=== PATIENT | female | born 1940 | race African-American/Black ===

== ENCOUNTER 2018-09-09 05:40 | Emergency (ER) | payer OTHER ==
[2018-09-09] MEDS ORDERED: SODIUM CHLORIDE 1,000 ML IV SCH (05:45)
[2018-09-09 06:08] VITALS: BMI 26.4
--- NOTE | 2018-09-09 07:52 | PDOC ---
History of Present Illness - General Chief Complaint: Pain Stated Complaint: GI DISTRESS Time Seen by Provider: 09/09/18 05:41 History Source: Patient Exam Limitations: No Limitations - History of Present Illness Initial Comments: 09/09/18 07:46 Patient is a 78F with history of HTN and GI bleed 2/2 diverticulosis here today complaining of lab variance. Patient states that she was admitted from 09/04/18 to 09/06/18. She was admitted for syncope and left against medical advice. She states that she syncopized while getting out of bed on 09/04, causing her to go to the hospital. Per records she provided: head CT was normal, EKG showed sinus bradycardia, carotid us was normal, orthostatic hypotension was found, patient had elevated d-dimer. Patient then refused CTA. She is coming back today because she states that she got scared. Denies current chest pain, shortness of breath, fevers, chills, nausea and vomiting. Endorses cramping in R leg. Denies pain in abdomen, endorses feeling bloated. Denies dysuria. Past History - Past Medical History Allergies/Adverse Reactions: Allergies Allergy/AdvReac Type Severity Reaction Status Date / Time Penicillins Allergy Verified 09/09/18 09:31 Sulfa (Sulfonamide Allergy Verified 09/09/18 09:31 Antibiotics) Home Medications: Ambulatory Orders Amlodipine Besylate 5 mg PO DAILY 09/09/18 Atorvastatin Ca [Lipitor] 10 mg PO HS 09/09/18 Docusate Sodium [Colace -] 200 mg PO HS 09/09/18 Ferrous Sulfate [Feosol] 325 mg PO DAILY 09/09/18 COPD: Yes - Immunization History Immunization Up to Date: Yes - Suicide/Smoking/Psychosocial Hx Smoking History: Never smoked Have you smoked in the past 12 months: No Information on smoking cessation initiated: No Hx Alcohol Use: No Drug/Substance Use Hx: No Review of Systems - Review of Systems Comments:: 09/09/18 07:54 GENERAL/CONSTITUTIONAL: No fever or chills. No weakness. HEAD, EYES, EARS, NOSE AND THROAT: No change in vision. No sore throat. CARDIOVASCULAR: No chest pain or shortness of breath RESPIRATORY: No cough, wheezing, or hemoptysis. GASTROINTESTINAL: No nausea, vomiting, diarrhea or constipation. GENITOURINARY: No dysuria, frequency, or change in urination. MUSCULOSKELETAL: +R leg pain. No neck or back pain. SKIN: No rash NEUROLOGIC: No headache, vertigo, +syncope, or change in strength/sensation. ENDOCRINE: No increased thirst. No abnormal weight change HEMATOLOGIC/LYMPHATIC: No anemia, easy bleeding, or history of blood clots. ALLERGIC/IMMUNOLOGIC: No hives or skin allergy. *Physical Exam - Vital Signs Last Vital Signs Temp Pulse Resp BP Pulse Ox 97.8 F 64 20 166/85 97 09/09/18 07:17 18 07:17 09/09/18 07:17 09/09/18 07:17 09/09/18 07:17 - Physical Exam Comments: 09/09/18 07:55 GENERAL: Awake, alert, and fully oriented, in no acute distress HEAD: No signs of trauma, normocephalic, atraumatic EYES: PERRLA, EOMI, sclera anicteric, conjunctiva clear ENT: Auricles normal inspection, hearing grossly normal, nares patent, oropharynx clear without exudates. Moist mucosa NECK: Normal ROM, supple, no lymphadenopathy, JVD, or masses LUNGS: No distress, speaks full sentences, clear to auscultation bilaterally HEART: Regular rate and rhythm, normal S1 and S2, no murmurs, rubs or gallops, peripheral pulses normal and equal bilaterally. ABDOMEN: Soft, nontender, normoactive bowel sounds. No guarding, no rebound. No masses EXTREMITIES: Normal inspection, Normal range of motion, no edema. No clubbing or cyanosis. R LEG: Nontender in posterior knee and calf, no pain with extension or flexion. NEUROLOGICAL: Cranial nerves II through XII grossly intact. Normal speech, no focal sensorimotor deficits SKIN: Warm, Dry, normal turgor, no rashes or lesions noted. Moderate Sedation - Procedure Monitoring Vital Signs: Procedure Monitoring Vital Signs Temperature 97.8 F 09/09/18 07:17 Pulse Rate 64 09/09/18 07:17 Respiratory Rate 20 09/09/18 07:17 Blood Pressure 166/85 09/09/18 07:17 O2 Sat by Pulse Oximetry (%) 97 09/09/18 07:17 ED Treatment Course - LABORATORY CBC & Chemistry Diagram: 09/09/18 08:10 09/09/18 08:10 - RADIOLOGY Radiology Studies Ordered: Category Date Time Status CHEST CTA [CT] Stat CT Scan 09/09/18 07:45 Ordered Medical Decision Making - Medical Decision Making 09/09/18 07:56 Patient is 78F with history of diverticulosis and htn here today after leaving AMA from a syncope workup at [facility]. Records show a comprehensive workup supporting orthostatic hypotension as cause of syncope, no symptoms since. D- dimer elevated as per her records, but never had US or CTA done. Will evaluate further with basic cardiac labs, ekg, cta chest, and dvt us. 09/09/18 12:43 Laboratory Tests 09/09/18 09/09/18 09/09/18 08:10 08:10 08:10 WBC 3.5 L Hgb 10.1 L Plt Count 198 INR 1.16 H BUN 6 L Creatinine 0.6 Troponin I 0.02 Urine Urobilinogen Ur Leukocyte Esterase Urine WBC (Auto) 09/09/18 09:36 WBC Hgb Plt Count INR BUN Creatinine Troponin I Urine Urobilinogen Negative Ur Leukocyte Esterase Trace Urine WBC (Auto) 2 CBC reassuring. CMP normal. Trop detectable but less than threshold. CTA normal. DVT US normal. Believe cause of patient's syncope likely dehyrdation causing orthostatic hypotension. Patient's PCP Nina Sandoval at [place] notified via message at her office. Given return precautions. Discharged home with instructions to follow up with primary care. *DC/Admit/Observation/Transfer Diagnosis at time of Disposition: Syncope - Discharge Dispostion Disposition: HOME Condition at time of disposition: Good Decision to Admit order: No - Referrals - Patient Instructions Printed Discharge Instructions: DI for Syncope in Adults (Fainting) Additional Instructions: Please call your primary care doctor today to make an appointment. Please return to the ED immediately if you have any new, worsening or concerning symptoms, especially fever, chest pain and shortness of breath. - Post Discharge Activity
[2018-09-09 08:37] LABS: EOS % 0.5 % (0-4.5); HEMATOCRIT 30.8 % (32.4-45.2); HEMOGLOBIN 10.1 GM/dL (10.7-15.3); LYMPH % 27.5 % (8-40); MCH 24.1 pg (25.7-33.7); MEAN CELL VOLUME 73.1 fl (80-96); MEAN PLT VOLUME 10.3 fl (7.5-11.1); MONO % 7.2 % (3.8-10.2); NEUT % 63.8 % (42.8-82.8); PLATELET COUNT 198 K/MM3 (134-434); RBC 4.21 M/mm3 (3.60-5.2); RDW 22.6 % (11.6-15.6); WHITE BLOOD COUNT 3.5 K/mm3 (4.0-10.0)
--- NOTE | 2018-09-09 08:58 | PDOC ---
Attending Attestation - Resident Resident Name: Hill Mccall - ED Attending Attestation I have performed the following: I have examined & evaluated the patient, The case was reviewed & discussed with the resident, I agree w/resident's findings & plan, Exceptions are as noted - HPI HPI: 09/09/18 08:55 70-year-old female history of hypertension previous GI bleed here today after a recent admission to [facility] from 1213 11/04/2014. Patient states she had a workup for syncope was admitted was evaluated with a echo of the heart, carotid Dopplers, in addition to lab work instantly patient had a positive d- dimer in the 3000 range at that point she left the hospital AMA because she was tired of being patient states today she became scared was told she could if the d-dimer was abnormal so she came to the ED for evaluation. Denies any chest pain no shortness of breath has had intermittent leg cramps and charley horses. No history of previous DVT or PE no recent travel patient states at the initial syncopal episode she was sitting on the edge of her bed and suddenly became lightheaded next thing she knew she was on the floor denies any chest pain no recent lightheadedness no shortness of breath no leg swelling no other complaints - Physicial Exam PE: 09/09/18 08:56 Awake alert no acute distress lungs are clear bilaterally heart is regular without any murmurs rubs or gallops abdomen is soft nontender no pulsatile masses extremities are warm and well perfused no appreciated edema no calf tenderness patient has symmetric pulses neurologically she is alert oriented 3 moving all 4 extremities face is symmetric. - Medical Decision Making 09/09/18 08:57 Differential diagnosis includes DVT PE other nonspecific inflammatory marker. We 'll obtain basic lab work including CBC CMP troponin EKG in addition we will obtain a CTA to rule out PE as the patient had a known positive d-dimer. In addition will get Dopplers of her legs lab lab work and results reviewed from the previous hospital if negative will likely discharge home follow up with cardiology
[2018-09-09 09:00] LABS: ALK PHOS 68 U/L (45-117); ANION GAP 7 MMOL/L (8-16); BILIRUBIN,TOTAL 0.8 mg/dL (0.2-1); BLOOD UREA NITROGEN 6 mg/dL (7-18); CALCIUM 8.6 mg/dL (8.5-10.1); CHLORIDE 106 mmol/L (98-107); CHOLESTEROL 181 mg/dL (50-200); CO2 29 mmol/L (21-32); CREATININE 0.6 mg/dL (0.55-1.3); GLUCOSE,RANDOM 85 mg/dL (74-106); POTASSIUM 3.8 mmol/L (3.5-5.1); SGOT/AST 22 U/L (15-37); SGPT/ALT 15 U/L (13-61); SODIUM 142 mmol/L (136-145); TOT PROT 7.7 g/dl (6.4-8.2); TRIGLYCERIDES 54 mg/dL (0-150)
[2018-09-09 09:29] LABS: INR 1.16 (0.83-1.09); PROTHROMBIN TIME (PATIENT) 13.7 SEC (9.7-13.0)
[2018-09-09 09:44] LABS: URINE APPEARANCE CLEAR; URINE BILIRUBIN NEGATIVE (<2.0 mg/dL); URINE COLOR COLORLESS; URINE GLUCOSE (UA) NEGATIVE (NEGATIVE); URINE KETONE NEGATIVE (NEGATIVE); URINE LEUK ESTERASE TRACE (NEGATIVE); URINE NITRITE NEGATIVE (NEGATIVE); URINE PROTEIN NEGATIVE (NEGATIVE); URINE UROBILINOGEN NEGATIVE mg/dL (0.2-1.0)
[2018-09-09 09:46] LABS: EPI CELLS RARE /HPF (FEW); URINE MUCUS RARE
[2018-09-09 09:54] LABS: HDL CHOLESTEROL 77 mg/dL (40-60)
[2018-09-09 11:08] LABS: ANISOCYTOSIS 1+; MACROCYTOSIS 0; PLATELET ESTIMATE NORMAL
[2018-09-09 13:02] VITALS: BP 125/76; PULSE 67; TEMP 98.3
--- NOTE | 2018-09-09 16:25 | EKG ---
Test Reason : Blood Pressure : / mmHG Vent. Rate : 052 BPM Atrial Rate : 052 BPM P-R Int : 176 ms QRS Dur : 080 ms QT Int : 448 ms P-R-T Axes : -17 -01 027 degrees QTc Int : 416 ms SINUS BRADYCARDIA NONSPECIFIC T WAVE ABNORMALITY ABNORMAL ECG Confirmed by MD FLORES, OPHELIA ([id number]) on 09/09/2018 4:24:40 PM Referred By: Confirmed By:OPHELIA TANNER MD
== END 2018-09-09 12:58 | disposition home or self-care (01) ==
LOC: JER 05:40
DX: R55 Syncope and collapse (principal); I10 Essential (primary) hypertension
CPT/HCPCS: 36415; 71275-TC; 80053; 81003; 81015; 82465; 82550; 83718; 83721; 84478; 84484; 85025; 85610; 93005; 93010; 93971-TC; 99284-25

== ENCOUNTER 2019-05-26 16:38 | Emergency (ER) | payer OTHER ==
[2019-05-26 17:45] VITALS: BMI 26.9
--- NOTE | 2019-05-26 17:56 | PDOC ---
History of Present Illness - General Chief Complaint: Injury Stated Complaint: FALL Time Seen by Provider: 05/26/19 17:54 History Source: Patient Exam Limitations: No Limitations - History of Present Illness Initial Comments: 05/26/19 17:55 Corrine Padilla is a 79F with PMH HTN, HLD, and diverticulosis with history of GIB requiring transfusions presenting with dizziness and fall. Patient was in a store when she began to feel lightheaded, room-spinning, and then she tripped her shoes on the carpet and fell to her right side, hitting her ribs against a metal display but not hitting her head. States that she did not lose consciousness or have post-ictal state. Says she had some racing heart during and after fall. No fevers, chills, abd pain, headache, SOB, LE weakness. Reports no arrhythmia history but that she takes amlodipine that might drop her BP from time to time. Got echo last week which she says no interval changes from year prior, gets them at the request of her PCP after other falls. Has history of "silent TIA," not on AC 2/2 history of major bleeding. Past History - Past Medical History Allergies/Adverse Reactions: Allergies Allergy/AdvReac Type Severity Reaction Status Date / Time Penicillins Allergy Verified 09/09/18 09:31 Sulfa (Sulfonamide Allergy Verified 09/09/18 09:31 Antibiotics) Home Medications: Ambulatory Orders Amlodipine Besylate 5 mg PO DAILY 09/09/18 Atorvastatin Ca [Lipitor] 10 mg PO HS 09/09/18 Docusate Sodium [Colace -] 200 mg PO HS 09/09/18 Ferrous Sulfate [Feosol] 325 mg PO DAILY 09/09/18 Pantoprazole Sodium [Protonix -] 20 mg PO DAILY 05/26/19 CVA: Yes (TIA) COPD: Yes HTN: Yes - Immunization History Immunization Up to Date: Yes - Suicide/Smoking/Psychosocial Hx Smoking History: Never smoked Have you smoked in the past 12 months: No Information on smoking cessation initiated: No Hx Alcohol Use: No Drug/Substance Use Hx: No Review of Systems - Review of Systems Constitutional: No: Symptoms Reported HEENTM: No: Blurred Vision, Recent change in vision, Double Vision, Tinnitus Respiratory: Yes: Cough (post-nasal drip). No: Shortness of Breath, SOB with Exertion, SOB at Rest, Wheezing Cardiac (ROS): No: Chest Pain, Irregular Heart Rate, Palpitations ABD/GI: No: Constipated, Diarrhea, Nausea, Vomiting : No: Burning, Dysuria, Discharge, Frequency, Flank Pain, Hematuria, Incontinence Integumentary: No: Symptoms Reported Neurological: No: Headache, Numbness, Paresthesia, Seizure, Tingling, Weakness, Unsteady Gait, Ataxia Endocrine: No: Symptoms Reported Hematologic/Lymphatic: No: Symptoms Reported All Other Systems: Reviewed and Negative *Physical Exam - Vital Signs Last Vital Signs Temp Pulse Resp BP Pulse Ox 97.9 F 59 L 18 162/83 96 05/26/19 17:41 05/26/19 17:41 05/26/19 17:41 05/26/19 17:41 05/26/19 17:41 - Physical Exam General Appearance: Yes: Nourished, Appropriately Dressed, Thin. No: Apparent Distress HEENT: positive: EOMI, GIOVANI, Normal Voice, Symmetrical, Pharynx Normal, Hearing Grossly Normal. negative: Scleral Icterus (R), Scleral Icterus (L), Pharyngeal Erythema, Tonsillar Exudate, Tonsillar Erythema, Sinus Tenderness Neck: positive: Normal Thyroid, Supple. negative: Tender, Lymphadenopathy (R), Lymphadenopathy (L), Tender lateral, Tender midline (no bony tenderness to neck) Respiratory/Chest: positive: Chest Tender (R lower rib cage, L side non-tender) , Lungs Clear, Normal Breath Sounds. negative: Respiratory Distress, Accessory Muscle Use, Crackles, Rales, Rhonchi Cardiovascular: positive: Regular Rhythm, Regular Rate. negative: Edema, Murmur Gastrointestinal/Abdominal: positive: Normal Bowel Sounds Musculoskeletal: positive: Normal Inspection. negative: CVA Tenderness, Vertebral Tenderness Extremity: positive: Normal Capillary Refill, Normal Inspection, Normal Range of Motion, Other (all limbs 5/5 motor, full ROM, moves spontaneously). negative : Tender Integumentary: positive: Normal Color, Dry, Warm Neurologic: positive: pie cutter II-XII NML intact, Fully Oriented, Alert, Normal Mood/ Affect, Normal Response, Motor Strength 5/5. negative: Facial Droop, Numbness, Sensory Deficit, Confused ED Treatment Course - LABORATORY CBC & Chemistry Diagram: 05/26/19 16:46 05/26/19 16:46 Medical Decision Making - Medical Decision Making 05/26/19 17:55 Corrine Padilla is a 79F with PMH HTN, HLD, and diverticulosis with history of GIB requiring transfusions presenting with dizziness and fall. Patient history and presentation concerning for dizziness/vertigo vs. cardiac syncope, especially given reported history of silent TIA, heart racing when falling. Did not hit head or LOC, but concerning presentation for TIA. No facial droop notable and absolutely no neurological deficits to cranial nerves or motor to extremities. Will evaluate with CT head non/con. XR rib series R side for possible rib fx. Further evaluation for cardiac syncope: CMP CBC CP ECG UA Signed out to Dr. Mccoy. *DC/Admit/Observation/Transfer Diagnosis at time of Disposition: Dizziness, Lightheadedness Fall Qualifiers: Encounter type: initial encounter Qualified Code(s): W19.XXXA - Unspecified fall, initial encounter - Referrals - Patient Instructions - Post Discharge Activity
--- NOTE | 2019-05-26 18:32 | PDOC ---
Attending Attestation - Resident Resident Name: Boston Gomez - ED Attending Attestation I have performed the following: I have examined & evaluated the patient, The case was reviewed & discussed with the resident, I agree w/resident's findings & plan, Exceptions are as noted - HPI HPI: 05/26/19 18:22 this 79 female was at [employer] shopping and became dizzy,felt the room spin and tried to keep standing but then got her shoe caught and fell and hit her rt anterior ribcage on a display in the store. Denies LOC and denies head trauma - Physicial Exam PE: 05/26/19 18:25 alert,conversant 79 yo female has c/o rt ribcage soreness head no scalp lacerations,no abrasions,no hematomas eyes xiang eomi neck no midline cervical vertebral tenderness lungs cta b/l cvs [id number] abdomen : flat,nontender tenderness to palpation of rt anterior ribcage beneath rt breast no flank pain skin : no abrasions,no lacerations extremities :no hip pain,able to raise both legs off the gurney neuro alert,conversant,No slurred speech,no facial droop,motor strength 5/5, b/ l 05/26/19 18:33 - Medical Decision Making 05/26/19 18:34 diff diag includes: TIA,vertigo,ACS,vasovagel vs near synope,arrhythmia plan ekg,trop,ct scan head,cbc,comp,UA 05/26/19 23:15 lab results unremarkable first troponin is negative ct scan head no acute intracranial pathology pt hasno focal neuro deficits no cp,no sob,no cough,no abd pain pt wants to leave w/o waiting for rd troponin and is signing out AMA
[2019-05-26 19:14] LABS: ALBUMIN 4.2 g/dl (3.4-5.0); BILIRUBIN,TOTAL 0.4 mg/dL (0.2-1); BLOOD UREA NITROGEN 6.9 mg/dL (7-18); CALCIUM 9.5 mg/dL (8.5-10.1); CREATININE 0.6 mg/dL (0.55-1.3); TOT PROT 7.5 g/dl (6.4-8.2)
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
[2019-05-26 19:28] LABS: EPI CELLS 4.1 /HPF (0-5/HPF); HYALINE CASTS 1 /lpf (0-8); PH,URINE 8.5 (5.0-8.0); URINE APPEARANCE CLEAR; URINE BACTERIA 7.6 /hpf (NEGATIVE); URINE BILIRUBIN NEGATIVE (NEGATIVE); URINE COLOR YELLOW; URINE GLUCOSE (UA) NEGATIVE (NEGATIVE); URINE KETONE NEGATIVE (NEGATIVE); URINE LEUK ESTERASE 2+ (NEGATIVE); URINE NITRITE NEGATIVE (NEGATIVE); URINE PROTEIN NEGATIVE (NEGATIVE); URINE RBC 1 /hpf (0-4); URINE UROBILINOGEN 0.2 mg/dL (0.2-1.0); URINE WBC 10 /hpf (0-5)
[2019-05-26 20:08] LABS: BASO % 1.2 % (0-2.0); EOS % 1.2 % (0-4.5); HEMATOCRIT 39.8 % (32.4-45.2); HEMOGLOBIN 12.8 GM/dL (10.7-15.3); LYMPH % 20.8 % (8-40); MCHC 32.1 g/dl (32.0-36.0); MEAN CELL VOLUME 84.3 fl (80-96); MEAN PLT VOLUME 10.2 fl (7.5-11.1); MONO % 5.7 % (3.8-10.2); NEUT % 71.1 % (42.8-82.8); PLATELET COUNT 121 K/MM3 (134-434); RBC 4.72 M/mm3 (3.60-5.2); RDW 27.6 % (11.6-15.6); WHITE BLOOD COUNT 5.4 K/mm3 (4.0-10.0)
[2019-05-26 20:37] LABS: ANISOCYTOSIS 3+; MACROCYTOSIS 1+; OVALOCYTE 1+; PLATELET ESTIMATE DECREASED; TARGET CELLS 1+
[2019-05-26 22:54] VITALS: BP 148/78; PULSE 72; TEMP 97.8
--- NOTE | 2019-05-27 09:03 | EKG ---
Test Reason : Blood Pressure : / mmHG Vent. Rate : 052 BPM Atrial Rate : 052 BPM P-R Int : 184 ms QRS Dur : 082 ms QT Int : 460 ms P-R-T Axes : 073 031 045 degrees QTc Int : 427 ms SINUS BRADYCARDIA NONSPECIFIC T WAVE ABNORMALITY ABNORMAL ECG WHEN COMPARED WITH ECG OF 09-SEP-2018 09:03, NO SIGNIFICANT CHANGE WAS FOUND Confirmed by LAURA GILBERT MD ([id number]) on 05/27/2019 9:03:09 AM Referred By: Confirmed By:LAURA GILBERT MD
== END 2019-05-26 23:45 | disposition left against medical advice (07) ==
LOC: JER 16:38
DX: R42 Dizziness and giddiness (principal); W18.39XA Other fall on same level, initial encounter; Y93.89 Activity, other specified; Y92.89 Other specified places as the place of occurrence of the external cause; I10 Essential (primary) hypertension; E78.5 Hyperlipidemia, unspecified; K92.2 Gastrointestinal hemorrhage, unspecified; J44.9 Chronic obstructive pulmonary disease, unspecified
CPT/HCPCS: 36415; 70450-TC; 71046-TC-FY; 71101-TC-RT-FY; 80053; 81003; 82550; 82553; 84484; 85025; 93005; 93010; 99283-25

== ENCOUNTER 2020-04-25 10:46 | Inpatient (IN) | payer OTHER ==
[2020-04-25 11:00] VITALS: BMI 21.8
[2020-04-25] MEDS ORDERED: SODIUM CHLORIDE 1,000 ML IV STA (11:05)
--- NOTE | 2020-04-25 11:33 | PDOC ---
History of Present Illness - General Chief Complaint: Rectal Bleed Stated Complaint: HEMATOCHEZIA Time Seen by Provider: 04/25/20 11:03 History Source: Patient Exam Limitations: No Limitations - History of Present Illness Initial Comments: Corrine is 80 yo F w a hx of HTN, HLD, Diverticulosis, partial hyserectomy, iron deficiency anemia requiring frequent transfusions, and a left inguinal hernia who presents to the [facility] er with rectal bleeding and BRBPR. First noticed the bleeding this morning after a bowel movement. Noticed dark stools in the toilet and when she wiped she noticed the blood. She states the toilet was full of blood. She had a similar episode to this in December where she was worked up [place]. Endorses lightheadedness. Also endorses having a hemorrhoid. Recently taken off pantoprazole. - Last colonoscopy may 2019 - Patient denies taking blood thinners Denies chest pain, sob, dysuria, frequency, hematuria, urgency, nausea, vomiting, abdominal pain. Denies fevers, chills, infections, recent travel. PCP: Shonda Diallo José GI: Dr. Rico Rosado - [facility] General Surgeon: None PSH: Partial hysterectomy Social Hx: Denies smoking, drinking, or other substance abuse Allergies: Penicillins, Sulfa Past History - Medical History Allergies/Adverse Reactions: Allergies Allergy/AdvReac Type Severity Reaction Status Date / Time Penicillins Allergy Verified 04/25/20 10:54 Sulfa (Sulfonamide Allergy Verified 04/25/20 10:54 Antibiotics) Home Medications: Ambulatory Orders Amlodipine Besylate 5 mg PO DAILY 09/09/18 Atorvastatin Ca [Lipitor] 10 mg PO HS 09/09/18 Docusate Sodium [Colace -] 200 mg PO HS 09/09/18 Ferrous Sulfate [Feosol] 325 mg PO DAILY 09/09/18 Pantoprazole Sodium [Protonix -] 20 mg PO DAILY 05/26/19 CVA: Yes (TIA) COPD: Yes HTN: Yes - Immunization History Immunization Up to Date: Yes - Psycho-Social/Smoking History Smoking History: Never smoked Have you smoked in the past 12 months: No - Substance Abuse Hx (Audit-C & DAST Scrn) How often the patient has a drink containing alcohol: Never Score: In Men: 4 or > Positive; In Women: 3 or > Positive: 0 Screen Result (Pos requires Nsg. Audit-10AR): Negative Review of Systems - Review of Systems Able to Perform ROS?: Yes Comments:: CONSTITUTIONAL: Present: Fatigue Absent: fever, no chills EYES: Absent: visual changes ENT: Absent: ear pain, no sore throat CARDIOVASCULAR: Absent: chest pain, no palpitations RESPIRATORY: Absent: cough, no SOB GI: Absent: Abdominal pain, no nausea, no vomiting, no constipation, no diarrhea GENITOURINARY: Absent: dysuria, no frequency, no hematuria MUSKULOSKELETAL: Absent: back pain, no arthralgia, no myalgia SKIN: Absent: rash NEURO: Absent: headache *Physical Exam - Vital Signs Last Vital Signs Temp Pulse Resp BP Pulse Ox 98.5 F 62 18 133/78 99 04/25/20 10:55 04/25/20 10:55 04/25/20 10:55 04/25/20 10:55 04/25/20 10:55 - Physical Exam GENERAL: Well-appearing, well-nourished. No apparent distress. HEENT: Normocephalic, atraumatic. PERRL, EOM intact. CARDIOVASCULAR: Normal S1, S2. Regular rate and rhythm. PULMONARY: No evidence of respiratory distress. Lungs clear to auscultation bilaterally. No wheezing, rales or rhonchi. ABDOMINAL: Soft. Non-tender. Non-distended. No rebound or guarding. No organomegaly. Normoactive bowel sounds. RECTAL EXAM: There is BRBPR on digital exam. There is an external hemorrhoid which is not tender and not thrombosed. EXTREMITIES: Normal ROM in all four extremities. No gross deformities. SKIN: Warm, dry. No rash NEUROLOGICAL: No focal neurological deficits. ED Treatment Course - LABORATORY CBC & Chemistry Diagram: 04/25/20 11:13 04/25/20 11:13 - RADIOLOGY Radiology Studies Ordered: Category Date Time Status ABDOMEN & PELVIS CT WITH CONTR [CT] Stat CT Scan 04/25/20 11:07 Ordered CHEST X-RAY PORTABLE* [RAD] Stat Radiology 04/25/20 11:05 Ordered Medical Decision Making - Medical Decision Making Corrine is 80 yo F w a hx of HTN, HLD, Diverticulosis, partial hyserectomy, iron deficiency anemia requiring frequent transfusions, and a left inguinal hernia who presents to the [facility] er with rectal bleeding and BRBPR. First noticed the bleeding this morning after a bowel movement. Noticed dark stools in the toilet and when she wiped she noticed the blood. She states the toilet was full of blood. She had a similar episode to this in December where she was worked up [place]. Endorses lightheadedness. Also endorses having a hemorrhoid. Recently taken off pantoprazole. - Last colonoscopy may 2019 - Patient denies taking blood thinners Vital Signs Temp Pulse Resp BP Pulse Ox 98.5 F 62 18 133/78 99 04/25/20 10:55 04/25/20 10:55 04/25/20 10:55 04/25/20 10:55 04/25/20 10:55 DDx IBNLT: GI bleed - likely lower, less likely upper, electrolyte/metabolic disturbance, anemia requiring transfusions, likely diverticular bleed, less likely AVM vs malignancy vs hemorrhoidal bleeding. Plan: Labs, Transfuse, GI, Admit for H&H trending, serial abdominal exams Labs: Hb 9 - Will transfuse 1 unit as patient is actively bleeding BRBPR in the ER. GI Consult: Spoke with Dr. Adames, aware of patient, will follow. Agrees with Tele admission. GI Dr. Rosado consult: States patient is a frequent flyer, planned for capsule endoscopy in the next few weeks at [facility]. States no need for transfer at present time as patient likely doesn't need intervention. Recommends monitoring H&H and [facility] GI fu if H&H stays stable Dispo: Telemetry Discharge - Discharge Information Problems reviewed: Yes Clinical Impression/Diagnosis: BRBPR (bright red blood per rectum), Diverticulosis, Anemia requiring transfusions GI bleed Qualifiers: GI bleed type/associated pathology: unspecified gastrointestinal hemorrhage type Qualified Code(s): K92.2 - Gastrointestinal hemorrhage, unspecified Condition: Stable - Admission Yes - Follow up/Referral Referrals: ON STAFF,NOT [Primary Care Provider] - - Patient Discharge Instructions - Post Discharge Activity
[2020-04-25 11:40] LABS: EOS % 0.4 % (0-4.5); HEMATOCRIT 29.6 % (32.4-45.2); LYMPH % 16.1 % (8-40); MCH 22.7 pg (25.7-33.7); MCHC 30.4 g/dl (32.0-36.0); MEAN CELL VOLUME 74.6 fl (80-96); NEUT % 72.5 % (42.8-82.8); PLATELET COUNT 226 K/MM3 (134-434); RBC 3.96 M/mm3 (3.60-5.2); RDW 25.8 % (11.6-15.6); WHITE BLOOD COUNT 5.8 K/mm3 (4.0-10.0)
[2020-04-25 11:47] LABS: INR 1.14 (0.83-1.09); PROTHROMBIN TIME (PATIENT) 13.5 SEC (9.7-13.0)
[2020-04-25 12:11] LABS: ALK PHOS 74 U/L (45-117); ANION GAP 8 MMOL/L (8-16); BILIRUBIN,TOTAL 0.7 mg/dL (0.2-1); CALCIUM 8.8 mg/dL (8.5-10.1); CHLORIDE 109 mmol/L (98-107); CO2 24 mmol/L (21-32); CREATININE 0.6 mg/dL (0.55-1.3); GLUCOSE,RANDOM 84 mg/dL (74-106); POTASSIUM 4.3 mmol/L (3.5-5.1); SGOT/AST 33 U/L (15-37); SGPT/ALT 14 U/L (13-61); SODIUM 141 mmol/L (136-145); TOT PROT 7.8 g/dl (6.4-8.2)
[2020-04-25 12:42] LABS: LDH 261 U/L (84-246)
[2020-04-25 12:47] LABS: ANISOCYTOSIS 3+; MACROCYTOSIS 0; PLATELET ESTIMATE NORMAL
--- NOTE | 2020-04-25 13:14 | CON.GI ---
Consult Consult Specialty:: GI Referred by:: Hospitalist Service Reason for Consultation:: Rectal bleeding - History of Present Illness Chief Complaint: Rectal bleeding History of Present Illness: 80F admitted through [facility] for evaluation of panless rectal bleeding. Described passage of red blood and clots. had formed dark BM's yesterday. Describes similar episode in the past, the last being december or january, alludes to being eval uated at [facility]. Did not have endoscopic evaluations at that time. Follows with mold dresser Dr. Rico Rosado of [facility] [phone]. He performed Ms. Padilla's most recent EGD/Colonoscopy june or July of 2019. She does not recall the findings. She states that she has seen Dr. Rosado last week and she is apparently scheduled to have a capsule endoscopy next week. No unintentioanl weight loss. Is maintained on iron therapy. Called Dr. Rosado's office. Was told he will call me back and that it may be a couple of hours. No family history of colorectal cancer or other GI malignancy. Denies NSAID use. - History Source History Provided By: Patient, Medical Record - Past Medical History Cardio/Vascular: Yes: HTN, Hyperlipdemia - Past Surgical History Additional Surgical History: Denies - Alcohol/Substance Use Hx Alcohol Use: No History of Substance Use: reports: None - Smoking History Smoking history: Never smoked Have you smoked in the past 12 months: No - Social History Usual Living Arrangement: Alone () ADL: Independent Place of : [facility] History of Recent Travel: No Home Medications - Allergies Allergies/Adverse Reactions: Allergies Allergy/AdvReac Type Severity Reaction Status Date / Time Penicillins Allergy Verified 04/25/20 10:54 Sulfa (Sulfonamide Allergy Verified 04/25/20 10:54 Antibiotics) - Home Medications Home Medications: Ambulatory Orders Amlodipine Besylate 5 mg PO DAILY 09/09/18 Atorvastatin Ca [Lipitor] 10 mg PO HS 09/09/18 Docusate Sodium [Colace -] 200 mg PO HS 09/09/18 Ferrous Sulfate [Feosol] 325 mg PO DAILY 09/09/18 Pantoprazole Sodium [Protonix -] 20 mg PO DAILY 05/26/19 Family Medical History Family Hx Respiratory Disorders: Sister (: COPD) Family Hx Gastrointestinal Disorder: Mother (DiedL Liver problems) Other Family History: Father: , unclear causes. 1 sister: , multiple medical problems. 4 sond, 2 daughters, healthy. No family history of colorectal cancer or other GI malignancy Review of Systems - Review of Systems Constitutional: denies: Chills, Unintentional Wgt. Loss Cardiovascular: denies: Chest Pain, Palpitations, Shortness of Breath Gastrointestinal: reports: Rectal Bleeding. denies: Abdominal Pain, Vomiting, Vomiting Blood Physical Exam-GI Vital Signs: Vital Signs during my exam 1300 Temperature --- 04/25/20 Pulse Rate 60 04/25/20 Respiratory Rate 18 04/25/20 Blood Pressure 143/66 04/25/20 O2 Sat by Pulse Oximetry (%) 99 on RA 04/25/20 Constitutional: Yes: Calm Eyes: No: Sclera Icterus Cardiovascular: Yes: Bradycardia. No: Murmur Respiratory: Yes: CTA Bilaterally Gastrointestinal Inspection: Yes: Other (Fulness left abdomen) ...Auscultate: Yes: Normoactive Bowel Sounds ...Palpate: Yes: Soft, Other (fullness in left abdomen). No: Hepatomegaly, Splenomegaly, Tenderness ...Percussion: No: Tympanitic ...Rectal Exam: Yes: Other (No external lesions, no masses, pasty dark blood) Edema: No (No LE edema) Neurological: Yes: Alert Labs: CBC, BMP 04/25/20 11:13 04/25/20 11:13 INR, PTT INR 1.14 (0.83-1.09) H 04/25/20 11:13 Problem List - Problems (1) BRBPR (bright red blood per rectum) Assessment/Plan: Rectal bleeding. Also with dark bowel movements. Hemodynamically stable Microcytic anemia c/w a more chronic anemia Discussed upper endoscopy and colonoscopy with Ms. Padilla to evaluate for sources of bleeding such as bleeding blood vessels, polyps, PUD, cancer such as colon cancer. Discussed potential risks of the procedures like but not limited bleeding, perforation requring surgery tor repair, infection, sedation medication effects all of which could be potentially life threatening. She states that she does not want to have procedures at this time. I explained that persistent unevaluated GI bleeding can be life threaetning and she said she understood. ER spoke to her mold dresser at [facility]. Did not plan on inpatient capsule endoscopy at this time and she is not being transferred. Advise: Monitored setting Monitor H/H Q8 Hrs. Ordered repeat for [address] A/P to evaluate left sided abdominal fullness. Ms. Padilla believes that she may have been told of a hernia If overt active bleeding with change in hemodynamics, CTA to help localize bleeding Keep Hgb >7 NPO except meds Despite history of dark BM's preceding today's rectal bleeding, Normal BUN and hemodynamic stability not suggestive of brisk ongoing UGIB. Protonix 40mg BID for now Obtain information re: recent admission to [facility] Code(s): K62.5 - HEMORRHAGE OF ANUS AND RECTUM (2) Bradycardia Assessment/Plan: Sinus bradycardia noted on a previous EKG 06/11. Not on beta jaylen Eval per primary team Code(s): R00.1 - BRADYCARDIA, UNSPECIFIED
--- NOTE | 2020-04-25 13:22 | PN ---
Teaching Attending Note Name of Resident: Samy Castellanos Addendum: CT A/P reviewed: Spigelian hernia with inclusion of bowel without signs of necrosis. Appreciated GI recommendations and will monitor for any further bleed. ATTENDING PHYSICIAN STATEMENT I saw and evaluated the patient. I reviewed the resident's note and discussed the case with the resident. I agree with the resident's findings and plan as documented. SUBJECTIVE: 80yo F with h/o of iron deficiency anemia, HTN, HLD who presents today with painless blood per rectum around 9 am. Patient reports defecating today with normal quality stool, however she had blood found in the toilet. Patient also noted clots at this time. Patient has had this situation happen before and had even syncopized 2/2 anemia in the past and is undergoing workup via [facility] Dr. Rosado. Patient sees him regularly and is scheduled for capsule endoscopy within the month. 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 She normally takes PO supplementation and experiences constipation very rarely. Pt denies any NSAID or AC use. Patient denies any alcohol use. Endorses + history of hemorrhoids. Patient at time of exam denies any lightheadedness/dizziness, however feels fatigued. She reports having some abdominal fullness and how she has had a hernia without intervention in the past. Patient denies fever/chills, SOB, CP, palpitations, back pain, hematuria, polyuria, dysuria. In ER GI in-house consulted and discussed with Dr. Rosado. Patient is receiving 1U PRBC in ER. Pt has not defecated since this AM and has not had any more episodes of blood per rectum. OBJECTIVE: Vital Signs Temperature 98.5 F 04/25/20 10:55 Pulse Rate 62 04/25/20 10:55 Respiratory Rate 18 04/25/20 10:55 Blood Pressure 133/78 04/25/20 10:55 O2 Sat by Pulse Oximetry (%) 99 04/25/20 10:55 Gen: NAD, awake, alert, oriented x3 HEENT: NC/AT, EOMI, SAFIA, no conjunctival pallor or scleral icterus, MMM Neck: No JVD Lung: CTA b/l without any wheezes or rales. On RA CARD: RRR with ectopic beats, no murmurs appreciated ABD: Soft, NT/ND, normoactive BS, no guarding, no rebound, no masses appreciated, no hepatomegaly RECTAL: External hemorrhoid 8'oclock position, no active bleed, brown stool on finger, no internal masses appreciated EXT: No edema, cap refill <2sec Skin: No rashes or lesions appreciated CBC, BMP 04/25/20 11:13 04/25/20 11:13 ASSESSMENT AND PLAN: GI Bleed History of HTN History of HLD History of Iron Deficiency Anemia Sinus Bradycardia --Pt receiving 1U of PRBC in ER --Recheck CBC (1600h, 2300h, AM) --Maintain Hgb>7.0 --GI on board and appreciated recommendations --Protonix 40mg BID --CT A/P: abd fullness with GI bleed --Patient deferred colonoscopy/endoscopy and is due to have capsule endoscopy with [facility] Physician. ER called [facility] GI to discuss case. No anticipated inpatient capsule endoscopy --Telemetry monitoring given GI bleed --Folic acid and iron supplementation as needed for reticulocyte production --NPO for now --Sinus bradycardia not on beta-jaylen noted on ECG incidentally --Asymptomatic --Possibly related to vasovagal reaction with defecation --Improving at time of exam and monitor for decreases Rest per resident noted Telemetry Jose Cat DO - IM
--- NOTE | 2020-04-25 15:34 | HP ---
CHIEF COMPLAINT: Dark red blood per rectum PCP: HISTORY OF PRESENT ILLNESS: Ms. Padilla is an 80F w a h/o Diverticulosis, iron deficiency anemia requiring frequent iron transfusions (last Fe Txfx 04/22) left inguinal hernia. She reports having one bowl movement today with copious dark stools. Patient also endorses painless dark stools on toilet paper. The patient reports having been admitted to [facility] in the past for the same symptoms. The patient endorses that she was treated with fluids and without any transfusions during her stay. The patient reports that she has had this experience on and off for the past 30 years. She states that her last EGD and colonoscopy was in 2019 at [facility]. The patient reported that the findings of the EGD were significant but could not elaborate further. The patient was spoken to by GI (Dr. Barrett) for evaluation with EGD and colonoscopy but she had denied after she was explained the risks involved. The patient denies any NSAID use, anticoagulation medications, and any abdominal pain. The patient reports that she has only had one bowel movement and does not feel the urge to defecate. ER course was notable for: (1) Internal hemorrhoid on MARLEE at the 8 O'Clock position (2)Copious Bright red blood per rectum on MARLEE (3) Hgb 9 Recent Travel: denies PAST MEDICAL HISTORY: PAST SURGICAL HISTORY: Social History: Smoking: denies Alcohol: denies Drugs: denies Allergies Penicillins Allergy (Verified 04/25/20 10:54) Sulfa (Sulfonamide Antibiotics) Allergy (Verified 04/25/20 10:54) HOME MEDICATIONS: Home Medications Medication Instructions Recorded Amlodipine Besylate 5 mg PO DAILY 09/09/18 Atorvastatin Ca [Lipitor] 10 mg PO HS 09/09/18 Docusate Sodium [Colace -] 200 mg PO HS 09/09/18 Ferrous Sulfate [Feosol] 325 mg PO DAILY 09/09/18 Pantoprazole Sodium [Protonix -] 20 mg PO DAILY 05/26/19 REVIEW OF SYSTEMS CONSTITUTIONAL: Absent: fever, chills, diaphoresis, generalized weakness, malaise, loss of appetite, weight change CARDIOVASCULAR: Absent: chest pain, syncope, palpitations, irregular heart rate, lightheadedness, peripheral edema RESPIRATORY: Absent: cough, shortness of breath, dyspnea with exertion, orthopnea, wheezing, stridor, hemoptysis GASTROINTESTINAL:melena, hematochezia Absent: abdominal pain, abdominal distension, nausea, vomiting, diarrhea, constipation, PSYCHIATRIC: Absent: anxiety, depression, suicidal or homicidal ideation, hallucinations. PHYSICAL EXAMINATION Vital Signs - 24 hr 04/25/20 10:55 Temperature 98.5 F Pulse Rate 62 Respiratory 18 Rate Blood Pressure 133/78 O2 Sat by Pulse 99 Oximetry (%) GENERAL: Awake, alert, and fully oriented, in no acute distress. HEAD: Normal with no signs of trauma. LUNGS: Breath sounds equal, clear to auscultation bilaterally. No wheezes, and no crackles. No accessory muscle use. HEART: Regular rate and rhythm, normal S1 and S2 without murmur, rub or gallop. ABDOMEN: Soft, nontender, not distended, normoactive bowel sounds, no guarding, no rebound No hepatomegaly or splenomegaly. UPPER EXTREMITIES: 2+ pulses, warm, well-perfused. No cyanosis. No clubbing. No peripheral edema. LOWER EXTREMITIES: 2+ pulses, warm, well-perfused. No calf tenderness. No periph eral edema. PSYCHIATRIC: Cooperative. Good eye contact. Appropriate mood and affect. SKIN: Warm, dry, normal turgor, no rashes or lesions noted, normal capillary refill. Laboratory Results - last 24 hr 04/25/20 04/25/20 04/25/20 11:13 11:13 11:13 WBC 5.8 RBC 3.96 Hgb 9.0 L Hct 29.6 L D MCV 74.6 L MCH 22.7 L MCHC 30.4 L RDW 25.8 H Plt Count 226 D MPV 10.0 Absolute Neuts (auto) 4.2 Neutrophils % 72.5 Lymphocytes % 16.1 D Monocytes % 8.0 Eosinophils % 0.4 Basophils % 3.0 H Nucleated RBC % 0 Hypochromia 1+ Platelet Estimate Normal Polychromasia 1+ Poikilocytosis 1+ Anisocytosis 3+ Microcytosis 3+ Macrocytosis 0 Schistocytes 1+ PT with INR 13.50 H INR 1.14 H PTT (Actin FS) 33.0 Sodium 141 Potassium 4.3 Chloride 109 H Carbon Dioxide 24 Anion Gap 8 BUN 13.0 Creatinine 0.6 Est GFR (CKD-EPI)AfAm 99.77 Est GFR (CKD-EPI)NonAf 86.09 Random Glucose 84 Calcium 8.8 Total Bilirubin 0.7 AST 33 ALT 14 Alkaline Phosphatase 74 LD Total 261 H Creatine Kinase 138 Troponin I < 0.02 Total Protein 7.8 Albumin 4.0 Blood Type Antibody Screen Crossmatch 04/25/20 04/25/20 11:13 13:45 WBC RBC Hgb Hct MCV MCH MCHC RDW Plt Count MPV Absolute Neuts (auto) Neutrophils % Lymphocytes % Monocytes % Eosinophils % Basophils % Nucleated RBC % Hypochromia Platelet Estimate Polychromasia Poikilocytosis Anisocytosis Microcytosis Macrocytosis Schistocytes PT with INR INR PTT (Actin FS) Sodium Potassium Chloride Carbon Dioxide Anion Gap BUN Creatinine Est GFR (CKD-EPI)AfAm Est GFR (CKD-EPI)NonAf Random Glucose Calcium Total Bilirubin AST ALT Alkaline Phosphatase LD Total Creatine Kinase Troponin I Total Protein Albumin Blood Type O POSITIVE O POSITIVE Antibody Screen Negative Crossmatch See Detail ASSESSMENT/PLAN: Ms. Padilla is an 80F w a h/o Diverticulosis, iron deficiency anemia requiring frequent iron transfusions (last Fe Txfx 04/22) left inguinal hernia arriving to the ED for dark stools and active rectal bleeding admitted for an LGIB #Acute internal hemorrhoid bleed - Patient consulted for GI - Dr. Barrett - Patient denies EGD/Colonoscopy (Gi explained the risks of denying) - Scheduled endoscopic capsule procedure outpatient with Dr. Rosado - 1 unit of PRBC to be given - H/H follow up Q1H post txfx - H/H Q6H thereafter - transfer to tele for HR monitoring - Resume IV home antihypertensive medications - STRICT NPO - Protonix 40mg BID # HTN - resume home meds IV #DVT px - SCDs Visit type - Medication Review Med list reviewed for High Risk Meds patients 65 and older: Yes - Emergency Visit Emergency Visit: Yes ED Registration Date: 04/25/20 Care time: The patient presented to the Emergency Department on the above date and was hospitalized for further evaluation of their emergent condition. - New Patient This patient is new to me today: Yes Date on this admission: 04/25/20 - Critical Care Critical Care patient: No ATTENDING PHYSICIAN STATEMENT I saw and evaluated the patient. I reviewed the resident's note and discussed the case with the resident. I agree with the resident's findings and plan as documented. SUBJECTIVE: OBJECTIVE: ASSESSMENT AND PLAN:
--- NOTE | 2020-04-25 15:49 | PDOC ---
Documentation entered by Svetlana Oh SCRIBE, acting as scribe for Rupert Armstrong MD. Rupert Armstrong MD: This documentation has been prepared by the Adriano miller Sydney, SCRIBE, under my direction and personally reviewed by me in its entirety. I confirm that the documentation accurately reflects all work, treatment, procedures, and medical decision making performed by me. Attending Attestation - Resident Resident Name: Kwaku Barry - ED Attending Attestation I have performed the following: I have examined & evaluated the patient, The case was reviewed & discussed with the resident, I agree w/resident's findings & plan, Exceptions are as noted - HPI HPI: 04/25/20 12:44 Patient is a 80 year old female with a significant past medical history of HTN, HLD, diverticulosis who presents to the ED with rectal bleeding since this morning. As per patient, she noticed dark stools and blood after she wiped. Patient reports the toilet was full of bright blood w clots. Patient endorses a similar episode in December of this year, where she was evaluated at [facility]. Patient notes lightheadedness for the last 2 hours as well. Denies chest pain, shortness of breath, dysuria, frequency, hematuria, urgency, nausea, or vomiting. Allergies: Penicillins, Sulfa PCP: Dr. Shonda Berkowitz 04/25/20 15:46 - Physicial Exam PE: 04/25/20 15:47 Agree with resident exam - Medical Decision Making 04/25/20 15:47 80-year-old female with a history of diverticulosis complicated by bleeding presents the emergency department with multiple episodes of bright red blood per rectum. On arrival to the emergency department vitals are stable, however patient is pale appearing. Labs concerning for 10 point hematocrit drop compared to CBC drawn in May 2019. Patient with episode of bright red bleeding per rectum in the emergency department. Dr. Barrett from gastroenterology has been consulted and evaluated the patient. We will transfuse the patient given active bleeding and [address] scan with no acute findings. Patient admitted for further management. Case discussed in detail with admitting physician including history, physical exam and ancillary studies. Admitting physician has assumed care for the patient, will follow all pending diagnostics and will complete the evaluation and treatment. Discharge - Discharge Information Problems reviewed: Yes Clinical Impression/Diagnosis: BRBPR (bright red blood per rectum), Diverticulosis, Anemia requiring transfusions GI bleed Qualifiers: GI bleed type/associated pathology: unspecified gastrointestinal hemorrhage type Qualified Code(s): K92.2 - Gastrointestinal hemorrhage, unspecified Condition: Stable - Follow up/Referral - Patient Discharge Instructions - Post Discharge Activity
--- NOTE | 2020-04-25 16:24 | PN ---
Progress Note (short form) - Note Progress Note: Spoke with Dr. Rosado. Ms. Padilla has h/o recurrent (6+ episodes) overt GI bleed and was evaluated at [facility] for this at some point. Preseumed diverticular bleed. Did recall scoping her around the time she stated and he will fax the reports to my office. did not find source of bleeding. Was supposed to have a capsule endoscopy for quite some time now, at least for 2 years, but this has not happened as of yet. Problem List - Problems (1) BRBPR (bright red blood per rectum) Code(s): K62.5 - HEMORRHAGE OF ANUS AND RECTUM (2) Bradycardia Code(s): R00.1 - BRADYCARDIA, UNSPECIFIED
--- NOTE | 2020-04-25 16:29 | PN ---
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 Large hernia containing large portion of right colon. Would likely preclude safe attempt at complete colonoscopy and increase risk for perforation. If continued bleeding and if patient amenable to endoscopic evaluation, awould advise transfer to tertiary care center. Problem List - Problems (1) BRBPR (bright red blood per rectum) Code(s): K62.5 - HEMORRHAGE OF ANUS AND RECTUM (2) Bradycardia Code(s): R00.1 - BRADYCARDIA, UNSPECIFIED
[2020-04-25 21:52] LABS: MCH 24.8 pg (25.7-33.7); MCHC 32.3 g/dl (32.0-36.0); MEAN CELL VOLUME 76.8 fl (80-96); MEAN PLT VOLUME 9.1 fl (7.5-11.1); PLATELET COUNT 189 K/MM3 (134-434); RBC 4.04 M/mm3 (3.60-5.2); RDW 25.4 % (11.6-15.6); WHITE BLOOD COUNT 5.8 K/mm3 (4.0-10.0)
[2020-04-25] MEDS: PANTOPRAZOLE SODIUM 40 MG VIAL IVPUSH SCH (22:44)
[2020-04-26 07:29] LABS: HEMATOCRIT 32.6 % (32.4-45.2); HEMOGLOBIN 10.4 GM/dL (10.7-15.3); MCH 24.6 pg (25.7-33.7); MEAN CELL VOLUME 76.9 fl (80-96); PLATELET COUNT 198 K/MM3 (134-434); RBC 4.24 M/mm3 (3.60-5.2); RDW 25.1 % (11.6-15.6); WHITE BLOOD COUNT 7.6 K/mm3 (4.0-10.0)
[2020-04-26 08:09] LABS: ALBUMIN 3.7 g/dl (3.4-5.0); BLOOD UREA NITROGEN 18.9 mg/dL (7-18); CALCIUM 8.8 mg/dL (8.5-10.1); CREATININE 0.6 mg/dL (0.55-1.3); MAGNESIUM 2.3 mg/dL (1.8-2.4); POTASSIUM 3.9 mmol/L (3.5-5.1); TOT PROT 7.1 g/dl (6.4-8.2)
[2020-04-26] MEDS: amLODIPine BESYLATE 5 MG TABLET (FP) PO SCH (09:23)
[2020-04-26] MEDS: PANTOPRAZOLE SODIUM 40 MG VIAL IVPUSH SCH ×2 (09:23→21:45)
--- NOTE | 2020-04-26 10:45 | EKG ---
Test Reason : Blood Pressure : / mmHG Vent. Rate : 054 BPM Atrial Rate : 054 BPM P-R Int : 164 ms QRS Dur : 082 ms QT Int : 452 ms P-R-T Axes : 003 -01 -13 degrees QTc Int : 428 ms SINUS BRADYCARDIA NONSPECIFIC T WAVE ABNORMALITY ABNORMAL ECG WHEN COMPARED WITH ECG OF 26-MAY-2019 18:51, NO SIGNIFICANT CHANGE WAS FOUND Confirmed by Carlos Ferreira ([id number]) on 04/26/2020 10:45:14 AM Referred By: Confirmed By:Carlos Ferreira
--- NOTE | 2020-04-26 11:05 | PN.GI ---
GI Progress Note Subjective: No acute events no overt bleeding given 1 U prbc - Objective Vital Signs: Vital Signs Temperature 98.4 F 04/26/20 09:13 Pulse Rate 60 04/26/20 09:13 Respiratory Rate 18 04/26/20 09:13 Blood Pressure 111/62 04/26/20 09:13 O2 Sat by Pulse Oximetry (%) 97 04/26/20 09:13 Constitutional: Calm Eyes: No: Sclera Icterus Cardiovascular: Yes: Bradycardia Respiratory: Yes: CTA Bilaterally Gastrointestinal Inspection: Yes: Other (fullness left abdomen). No: Distention ...Auscultate: Yes: Normoactive Bowel Sounds ...Palpate: Yes: Other (Fullness Left abdomen). No: Hepatomegaly, Splenomegaly, Tenderness ...Percussion: No: Tympanitic Edema: No (No LE edema) Neurological: Yes: Alert Labs: CBC, BMP 04/26/20 05:51 04/26/20 05:51 INR, PTT INR 1.14 (0.83-1.09) H 04/25/20 11:13 Problem List - Problems (1) BRBPR (bright red blood per rectum) Assessment/Plan: No overt bleeding overnight, remais hemodynamically stable. Advanced to clear liquid If persistent overt bleeding CTA to help localize source As noted in my noted from yesterday, CT scan report was noted. Large spigelian hernia containing large portion of right colon. Would likely preclude safe attempt at complete colonoscopy and increase risk for perforation / incarceration of the colonoscope. Due to this, If continued bleeding and if patient amenable to endoscopic evaluation, would advise transfer to tertiary care center. Monitor H/H and for overt GI bleeding Code(s): K62.5 - HEMORRHAGE OF ANUS AND RECTUM (2) Bradycardia Code(s): R00.1 - BRADYCARDIA, UNSPECIFIED
--- NOTE | 2020-04-26 14:18 | PN ---
Physical Exam: SUBJECTIVE: Patient seen and examined OBJECTIVE: Vital Signs Period Temp Pulse Resp BP Sys/Sood Pulse Ox Last 24 Hr 97.4 F-98.4 F 54-95 16-18 108-131/62-77 96-100 GENERAL: The patient is awake, alert, and fully oriented, in no acute distress. HEAD: Normal with no signs of trauma. EYES: PERRL, extraocular movements intact, sclera anicteric, conjunctiva clear. No ptosis. ENT: Ears normal, nares patent, oropharynx clear without exudates, moist mucous membranes. NECK: Trachea midline, full range of motion, supple. LUNGS: Breath sounds equal, clear to auscultation bilaterally, no wheezes, no crackles, no accessory muscle use. HEART: Regular rate and rhythm, S1, S2 without murmur, rub or gallop. ABDOMEN: Soft, nontender, nondistended, normoactive bowel sounds, no guarding, no rebound, no hepatosplenomegaly, no masses. EXTREMITIES: 2+ pulses, warm, well-perfused, no edema. NEUROLOGICAL: Cranial nerves II through XII grossly intact. Normal speech, gait not observed. PSYCH: Normal mood, normal affect. SKIN: Warm, dry, normal turgor, no rashes or lesions noted Laboratory Results - last 24 hr 04/25/20 04/25/20 04/25/20 11:13 13:45 13:45 WBC RBC Hgb Hct MCV MCH MCHC RDW Plt Count MPV Sodium Potassium Chloride Carbon Dioxide Anion Gap BUN Creatinine Est GFR (CKD-EPI)AfAm Est GFR (CKD-EPI)NonAf Random Glucose Calcium Magnesium Total Bilirubin AST ALT Alkaline Phosphatase Total Protein Albumin COVID-19 (FRANCISCO) Not detected Blood Type O POSITIVE O POSITIVE Antibody Screen Negative Crossmatch See Detail 04/25/20 04/26/20 04/26/20 21:40 05:51 05:51 WBC 5.8 7.6 RBC 4.04 4.24 Hgb 10.0 L 10.4 L Hct 31.0 L 32.6 MCV 76.8 L 76.9 L MCH 24.8 L 24.6 L MCHC 32.3 32.0 RDW 25.4 H 25.1 H Plt Count 189 198 MPV 9.1 10.0 Sodium 142 Potassium 3.9 Chloride 110 H Carbon Dioxide 26 Anion Gap 6 L BUN 18.9 H Creatinine 0.6 Est GFR (CKD-EPI)AfAm 99.77 Est GFR (CKD-EPI)NonAf 86.09 Random Glucose 76 Calcium 8.8 Magnesium 2.3 Total Bilirubin 1.0 AST 22 ALT 12 L Alkaline Phosphatase 71 Total Protein 7.1 Albumin 3.7 COVID-19 (FRANCISCO) Blood Type Antibody Screen Crossmatch Active Medications Generic Name Dose Route Start Last Admin Trade Name Percyq PRN Reason Stop Dose Admin Amlodipine Besylate 5 mg 04/26/20 10:00 04/26/20 09:23 Norvasc - PO 5 mg DAILY DULCE Administration Pantoprazole Sodium 40 mg 04/25/20 22:00 04/26/20 09:23 Protonix Iv IVPUSH 40 mg BID DULCE Administration ASSESSMENT/PLAN: Ms. Padilla is an 80F w a h/o diverticulosis, iron def anemia requiring frequent transfusions, and a left sided spigilian hernia. The patient has reported tot he ed for dark stools and admitted for LGIB. #Acute on chronic GI bleed - Patient consulted for GI - Dr. Barrett - Gi recommends having patient follow up outpatient with [facility] capsule endoscopy appointment due to high risk case with Dr. Rosado. - Patient denies EGD/Colonoscopy (Gi explained the risks of denying) - 1 unit of PRBC given - Resume IV home antihypertensive medications - clear liquid diet - Protonix 40mg BID #Hypertension Continue amlodipine 2.5mg qd #HLD - continue lipitor 10mg qd #DVT prophylaxis: SCDs Visit type - Emergency Visit Emergency Visit: Yes ED Registration Date: 04/25/20 Care time: The patient presented to the Emergency Department on the above date and was hospitalized for further evaluation of their emergent condition. - New Patient This patient is new to me today: No - Critical Care Critical Care patient: No - Discharge Referral Referred to [facility] Med P.C[facility] No - Medication Review Med list reviewed for High Risk Meds patients 65 and older: Yes ATTENDING PHYSICIAN STATEMENT I saw and evaluated the patient. I reviewed the resident's note and discussed the case with the resident. I agree with the resident's findings and plan as documented. SUBJECTIVE: OBJECTIVE: ASSESSMENT AND PLAN:
--- NOTE | 2020-04-26 14:45 | PN ---
Teaching Attending Note Name of Resident: Samy Castellanos ATTENDING PHYSICIAN STATEMENT I saw and evaluated the patient. I reviewed the resident's note and discussed the case with the resident. I agree with the resident's findings and plan as documented. SUBJECTIVE: Seen and examined at bedside. Patient with no acute complaints at this time. Hemoglobin with appropriate response status post 1 unit. No further bleeding noted. Will advance diet. OBJECTIVE: Last Vital Signs Temp Pulse Resp BP Pulse Ox 97.5 F L 88 20 146/74 97 04/26/20 13:04/26/20 13:04/26/20 13:04/26/20 13:04/26/20 09:13 PE: Per resident note Labs/Imaging: reviewed ASSESSMENT AND PLAN: 80-year-old female with a history of diverticulosis, iron deficiency anemia requiring frequent transfusions, left inguinal hernia presents to the ED with admitted for melanic stools. #Acute on chronic GI bleed GI on board: Appreciate recommendations Was pending outpatient capsule endoscopy prior to admission Status post 1 unit Hemodynamically stable Per GI, given large hernia patient is too high risk for colonoscopy at this location If bleeding continues, recommend transfer to tertiary facility for colonoscopy If bleeding stops, likely can have outpatient capsule endoscopy Clear liquids Protonix twice daily #Hypertension Continue home meds #DVT prophylaxis: SCDs
[2020-04-27 08:18] LABS: HEMATOCRIT 31.1 % (32.4-45.2); HEMOGLOBIN 9.9 GM/dL (10.7-15.3); MCH 24.5 pg (25.7-33.7); MCHC 31.7 g/dl (32.0-36.0); MEAN CELL VOLUME 77.3 fl (80-96); MEAN PLT VOLUME 9.9 fl (7.5-11.1); PLATELET COUNT 187 K/MM3 (134-434); RBC 4.03 M/mm3 (3.60-5.2); RDW 25.8 % (11.6-15.6); WHITE BLOOD COUNT 6.1 K/mm3 (4.0-10.0)
[2020-04-27 08:48] LABS: BLOOD UREA NITROGEN 17.8 mg/dL (7-18); CALCIUM 8.6 mg/dL (8.5-10.1); CREATININE 0.7 mg/dL (0.55-1.3); MAGNESIUM 2.4 mg/dL (1.8-2.4); POTASSIUM 3.5 mmol/L (3.5-5.1)
[2020-04-27 08:59] LABS: PHOSPHOROUS 2.4 mg/dL (2.5-4.9)
[2020-04-27] MEDS: amLODIPine BESYLATE 5 MG TABLET (FP) PO SCH (09:47)
[2020-04-27] MEDS: PANTOPRAZOLE SODIUM 40 MG VIAL IVPUSH SCH (09:47)
--- NOTE | 2020-04-27 14:32 | PN ---
Teaching Attending Note Name of Resident: Samy Castellanos ATTENDING PHYSICIAN STATEMENT I saw and evaluated the patient. I reviewed the resident's note and discussed the case with the resident. I agree with the resident's findings and plan as documented. SUBJECTIVE: Seen and examined at bedside. Patient with no acute complaints at this time. Hemoglobin is stable since blood transfusion and patient has had no further bleeding. Patient is medically cleared for discharge and will follow-up with her outpatient customer service security officer for capsule endoscopy. OBJECTIVE: Last Vital Signs Temp Pulse Resp BP Pulse Ox 97.5 F L 88 20 146/74 97 04/26/20 13:04/26/20 13:00 04/26/20 13:00 04/26/20 13:04/26/20 09:13 PE: Per resident note Labs/Imaging: reviewed ASSESSMENT AND PLAN: 80-year-old female with a history of diverticulosis, iron deficiency anemia requiring frequent transfusions, left inguinal hernia presents to the ED with admitted for melanic stools. Patient was transfused 1 unit of blood. Hemoglobin is stable since blood transfusion and patient has had no further bleeding. Patient is medically cleared for discharge and will follow-up with her outpatient customer service security officer for capsule endoscopy.
[2020-04-27 18:21] VITALS: BP 127/59; PULSE 73; TEMP 98.7
--- NOTE | 2020-04-27 20:15 | DS ---
Physical Exam: SUBJECTIVE: Patient seen and examined at bedside with no acute complaints overnight OBJECTIVE: Vital Signs Period Temp Pulse Resp BP Sys/Sood Pulse Ox Last 24 Hr 97.6 F-98.7 F 60-73 12-19 107-136/59-92 97-98 PHYSICAL EXAM GENERAL: The patient is awake, alert, and fully oriented, in no acute distress. LUNGS: Breath sounds equal, clear to auscultation bilaterally, no wheezes, no crackles, no accessory muscle use. HEART: Regular rate and rhythm, S1, S2 without murmur, rub or gallop. ABDOMEN: Soft, nontender, nondistended, normoactive bowel sounds, no guarding, no rebound, no hepatosplenomegaly, no masses. EXTREMITIES: 2+ pulses, warm, well-perfused, no edema. LABS Laboratory Results - last 24 hr 04/27/20 04/27/20 06:19 06:19 WBC 6.1 RBC 4.03 Hgb 9.9 L Hct 31.1 L MCV 77.3 L MCH 24.5 L MCHC 31.7 L RDW 25.8 H Plt Count 187 MPV 9.9 Sodium 142 Potassium 3.5 Chloride 109 H Carbon Dioxide 27 Anion Gap 6 L BUN 17.8 Creatinine 0.7 Est GFR (CKD-EPI)AfAm 94.84 Est GFR (CKD-EPI)NonAf 81.83 Random Glucose 80 Calcium 8.6 Phosphorus 2.4 L Magnesium 2.4 HOSPITAL COURSE: Date of Admission:04/25/20 Ms. Padilla is an 80F w a h/o Diverticulosis, iron deficiency anemia requiring frequent iron transfusions (last Fe Txfx 04/22) left inguinal hernia arriving to the ED for dark stools and active rectal bleeding admitted for an LGIB suspicious of internal hemorrhoid bleeding. Dr. Barrett (GI) consulted for evaluation and patient denied EGD/colonoscopy workup after being explained the risks involved with denying the procedure. The patient was noted to have a hgb of 9 and received 1 unit of PRBC. The patient had scheduled an endoscopic capsule procedure outpatient with Dr. Rosado. The patient was found to be hemodynamically stable and was medically cleared for discharge. Date of Discharge: 04/27/20 Minutes to complete discharge: 40 Discharge Summary Problems reviewed: Yes Reason For Visit: TRANSFUSION DEPENDENT ANEMIA GASTROINTESTINAL HEMO Condition: Stable - Instructions Diet, Activity, Other Instructions: You were evaluated in the hospital after you experienced dark bowel movements that was concerning for possible intestinal bleeding. You received one blood transfusion. You were evaluated by a Software Licensing Specialist. It was determined that evaluation with a colonscopy was deemed too risky to attempt. It would be best performed at a larger regional hospital for respiratory and complex care hospital. It was recommended that you proceed with a Capsule Endoscopy. Bloodwork showed that your anemia was stable after the blood transfusion. It was determined that you were deemed safe for discharge home. MEDICATIONS - NEW MEDICATIONS: --please increase your iron intake, FEOSOL increased to 325mg daily --please take Vitamin C 100mg, daily - please continue to take your iron supplements and other home medications Follow-up with the physicians below: - Primary Care Physician(within 2-3weeks): to discuss your recent hospitalization - Software Licensing Specialist(Dr Chapin Rosado at [facility]): you are recommended to get the Capsule Endoscopy. You have an appointment set up for May 05 at 8:40AM. Expect to get a call from Dr Rosado's assistant auto center manager within the next few days. You can call his office at [phone] if you have any other questions or concerns Please seek immediate medical care if you experience black tarry stools, bloody bowel movements, bloody vomiting, increasing fatigue or weakness. Referrals: [facility] [Outside] - 05/05/20 8:40 am (Dr Chapin Rosado, phone [phone]. Your appiontment is 05/05/2020 at 8:40AM) ON STAFF,NOT [Primary Care Provider] - Disposition: HOME - Home Medications Comprehensive Discharge Medication List: Ambulatory Orders Amlodipine Besylate 2.5 mg PO DAILY 09/09/18 Atorvastatin Ca [Lipitor] 10 mg PO HS 09/09/18 Docusate Sodium [Colace -] 200 mg PO HS 09/09/18 Pantoprazole Sodium [Protonix -] 40 mg PO DAILY 05/26/19 Levocetirizine Dihydrochloride [Xyzal] 2.5 tab PO HS 04/25/20 Ascorbic Acid [Vitamin C] 100 mg PO DAILY #30 tablet 04/27/20 Ferrous Sulfate [Feosol] 325 mg PO DAILY #30 tablet 04/27/20 This patient is new to me today: No Emergency Visit: Yes ED Registration Date: 04/25/20 Care time: The patient presented to the Emergency Department on the above date and was hospitalized for further evaluation of their emergent condition. Critical Care patient: No - Discharge Referral Referred to [facility] No ATTENDING PHYSICIAN STATEMENT I saw and evaluated the patient. I reviewed the resident's note and discussed the case with the resident. I agree with the resident's findings and plan as documented. SUBJECTIVE: OBJECTIVE: ASSESSMENT AND PLAN:
== END 2020-04-27 19:10 | disposition home or self-care (01) | DRG 379 ==
LOC: JER 10:46 → JERBED 13:22 → J4S 21:13
PROVIDERS: ADMIT Internal Medicine; ATTEND Internal Medicine
PROC: 30233N1 Transfusion of Nonautologous Red Blood Cells into Peripheral Vein, Percutaneous Approach (ICD-10-PCS; principal; 2020-04-25)
DX: K62.5 Hemorrhage of anus and rectum (principal); E78.5 Hyperlipidemia, unspecified; D50.9 Iron deficiency anemia, unspecified; K57.90 Diverticulosis of intestine, part unspecified, without perforation or abscess without bleeding; K64.8 Other hemorrhoids; R00.1 Bradycardia, unspecified; K40.90 Unilateral inguinal hernia, without obstruction or gangrene, not specified as recurrent; I10 Essential (primary) hypertension; Z88.0 Allergy status to penicillin
CPT/HCPCS: 36415; 36430; 71045-TC-FY; 74176-TC; 80048; 80053; 82550; 83615; 83735; 84100; 84484; 85025; 85027; 85610; 85730; 86850; 86900; 86901; 86922; 93005; 93010; 99285-25; P9058; U0003

== ENCOUNTER 2021-04-16 10:54 | Inpatient (IN) | payer OTHER ==
[2021-04-16 11:17] VITALS: BMI 19.7
[2021-04-16 12:03] LABS: HEMATOCRIT 27.3 % (32.4-45.2); HEMOGLOBIN 8.8 GM/dL (10.7-15.3); MCH 26.4 pg (25.7-33.7); MCHC 32.1 g/dl (32.0-36.0); MEAN CELL VOLUME 82.1 fl (80-96); MEAN PLT VOLUME 9.2 fl (7.5-11.1); PLATELET COUNT 145 10^3/uL (134-434); RBC 3.33 M/mm3 (3.60-5.2); RDW 28.7 % (11.6-15.6); WHITE BLOOD COUNT 5.5 K/mm3 (4.0-10.0)
[2021-04-16 12:29] LABS: CHLORIDE 106 mmol/L (98-107); SODIUM 141 mmol/L (136-145)
[2021-04-16 12:31] LABS: ALBUMIN 3.6 g/dl (3.4-5.0); ANION GAP 10 MMOL/L (8-16); BLOOD UREA NITROGEN 13.2 mg/dL (7-18); CALCIUM 8.5 mg/dL (8.5-10.1); CO2 25 mmol/L (21-32); GLUCOSE,RANDOM 129 mg/dL (74-106)
[2021-04-16 12:34] LABS: SGPT/ALT 16 U/L (13-61)
[2021-04-16 12:35] LABS: CREATININE 0.8 mg/dL (0.55-1.3); SGOT/AST 21 U/L (15-37)
[2021-04-16 12:36] LABS: BILIRUBIN,TOTAL 0.5 mg/dL (0.2-1); TOT PROT 6.8 g/dl (6.4-8.2)
[2021-04-16 12:37] LABS: ALK PHOS 58 U/L (45-117)
[2021-04-16 13:54] LABS: ANISOCYTOSIS 2+; MACROCYTOSIS 0; PLATELET ESTIMATE DECREASED
[2021-04-16 15:49] LABS: BASO % 0.7 % (0-2.0); EOS % 0.3 % (0-4.5); HEMATOCRIT 30.8 % (32.4-45.2); HEMOGLOBIN 9.9 GM/dL (10.7-15.3); LYMPH % 4.7 % (8-40); MCH 26.4 pg (25.7-33.7); MCHC 32.1 g/dl (32.0-36.0); MEAN PLT VOLUME 9.7 fl (7.5-11.1); MONO % 18.6 % (3.8-10.2); NEUT % 75.7 % (42.8-82.8); PLATELET COUNT 182 10^3/uL (134-434); RBC 3.76 M/mm3 (3.60-5.2); RDW 28.3 % (11.6-15.6); WHITE BLOOD COUNT 7.8 K/mm3 (4.0-10.0)
[2021-04-16 15:55] LABS: INR 1.16 (0.83-1.09)
[2021-04-16 15:58] LABS: ACTIVATED PTT 25.4 SECONDS (25.2-36.5)
[2021-04-16] MEDS ORDERED: SODIUM CHLORIDE 0.9% 500 ML INFUS.BAG IV ONE (16:11)
[2021-04-17 01:54] LABS: HEMATOCRIT 25.4 % (32.4-45.2); MCH 25.6 pg (25.7-33.7); MCHC 31.4 g/dl (32.0-36.0); MEAN CELL VOLUME 81.5 fl (80-96); MEAN PLT VOLUME 9.2 fl (7.5-11.1); PLATELET COUNT 139 10^3/uL (134-434); RBC 3.12 M/mm3 (3.60-5.2); RDW 28.2 % (11.6-15.6); WHITE BLOOD COUNT 5.2 K/mm3 (4.0-10.0)
[2021-04-17 02:35] LABS: BASO % 0.9 % (0-2.0); HEMATOCRIT 25.1 % (32.4-45.2); LYMPH % 29.6 % (8-40); MCHC 31.8 g/dl (32.0-36.0); MEAN CELL VOLUME 81.7 fl (80-96); MEAN PLT VOLUME 9.6 fl (7.5-11.1); MONO % 7.3 % (3.8-10.2); NEUT % 62.2 % (42.8-82.8); PLATELET COUNT 140 10^3/uL (134-434); RBC 3.07 M/mm3 (3.60-5.2); RDW 28.2 % (11.6-15.6); RETICULOCYTES 1.63 % (0.5-1.5); WHITE BLOOD COUNT 5.2 K/mm3 (4.0-10.0)
[2021-04-17 09:12] LABS: HEMATOCRIT 25.9 % (32.4-45.2); HEMOGLOBIN 8.4 GM/dL (10.7-15.3); MCH 26.5 pg (25.7-33.7); MCHC 32.4 g/dl (32.0-36.0); MEAN CELL VOLUME 81.8 fl (80-96); MEAN PLT VOLUME 9.4 fl (7.5-11.1); PLATELET COUNT 149 10^3/uL (134-434); RBC 3.16 M/mm3 (3.60-5.2); RDW 28.1 % (11.6-15.6); WHITE BLOOD COUNT 5.2 K/mm3 (4.0-10.0)
[2021-04-17 09:38] LABS: CHLORIDE 110 mmol/L (98-107); SODIUM 145 mmol/L (136-145)
[2021-04-17 09:48] LABS: CALCIUM 8.5 mg/dL (8.5-10.1)
[2021-04-17 09:49] LABS: ALBUMIN 3.5 g/dl (3.4-5.0); ANION GAP 8 MMOL/L (8-16); BLOOD UREA NITROGEN 14.3 mg/dL (7-18); CO2 27 mmol/L (21-32); GLUCOSE,RANDOM 65 mg/dL (74-106)
[2021-04-17 09:50] LABS: MAGNESIUM 2.1 mg/dL (1.8-2.4)
[2021-04-17 09:51] LABS: BILIRUBIN,TOTAL 0.6 mg/dL (0.2-1)
[2021-04-17 09:52] LABS: ALK PHOS 58 U/L (45-117); CREATININE 0.6 mg/dL (0.55-1.3); SGOT/AST 17 U/L (15-37); SGPT/ALT 15 U/L (13-61)
[2021-04-17 09:53] LABS: PHOSPHOROUS 3.9 mg/dL (2.5-4.9); TOT PROT 6.4 g/dl (6.4-8.2); TOTAL IRON BINDING CAPACITY 282 ug/dL (250-450)
[2021-04-17 09:57] LABS: CHOLESTEROL 157 mg/dL (50-200); TRIGLYCERIDES 68 mg/dL (0-150)
[2021-04-17 09:58] LABS: LDL CHOLESTEROL (ONLY SJRH) 83 mg/dL (5-100)
[2021-04-17] MEDS: PANTOPRAZOLE 40 MG TABLET PO SCH (09:58)
[2021-04-17] MEDS ORDERED: PANTOPRAZOLE 40 MG TABLET PO SCH (10:00)
[2021-04-17 10:01] LABS: HDL CHOLESTEROL 65 mg/dL (40-60)
[2021-04-17 10:07] LABS: LDH 160 U/L (84-246)
[2021-04-17] MEDS: AMINO ACIDS 4.25%/D5W 1,000 ML IV SCH (13:33)
[2021-04-17] MEDS ORDERED: PT OWN MED DRAWER 7, Y5N ONE (18:03)
[2021-04-17] MEDS: ATORVASTATIN CA 10 MG TABLET (FP) PO SCH (22:00)
[2021-04-18] MEDS: AMINO ACIDS 4.25%/D5W 1,000 ML IV SCH ×2 (02:11→13:48)
[2021-04-18] MEDS: PANTOPRAZOLE 40 MG TABLET PO SCH (09:25)
[2021-04-18 11:47] LABS: BASO % 0.9 % (0-2.0); EOS % 0.4 % (0-4.5); HEMATOCRIT 26.4 % (32.4-45.2); HEMOGLOBIN 8.5 GM/dL (10.7-15.3); LYMPH % 26.8 % (8-40); MCH 26.6 pg (25.7-33.7); MCHC 32.3 g/dl (32.0-36.0); MEAN CELL VOLUME 82.3 fl (80-96); MEAN PLT VOLUME 9.7 fl (7.5-11.1); MONO % 7.6 % (3.8-10.2); NEUT % 64.3 % (42.8-82.8); PLATELET COUNT 147 10^3/uL (134-434); RBC 3.21 M/mm3 (3.60-5.2); RDW 27.2 % (11.6-15.6); WHITE BLOOD COUNT 5.4 K/mm3 (4.0-10.0)
[2021-04-18 12:24] LABS: BLOOD UREA NITROGEN 20.4 mg/dL (7-18); CALCIUM 8.2 mg/dL (8.5-10.1); MAGNESIUM 2.1 mg/dL (1.8-2.4)
[2021-04-18 12:25] LABS: ALBUMIN 3.6 g/dl (3.4-5.0)
[2021-04-18 12:27] LABS: CREATININE 0.6 mg/dL (0.55-1.3)
[2021-04-18 12:29] LABS: BILIRUBIN,TOTAL 0.4 mg/dL (0.2-1); TOT PROT 6.7 g/dl (6.4-8.2)
[2021-04-18] MEDS: ATORVASTATIN CA 10 MG TABLET (FP) PO SCH (21:24)
[2021-04-19 09:15] LABS: BASO % 0.8 % (0-2.0); EOS % 0.4 % (0-4.5); HEMATOCRIT 26.7 % (32.4-45.2); HEMOGLOBIN 8.5 GM/dL (10.7-15.3); LYMPH % 20.2 % (8-40); MCH 26.7 pg (25.7-33.7); MEAN CELL VOLUME 83.3 fl (80-96); MEAN PLT VOLUME 9.7 fl (7.5-11.1); NEUT % 69.6 % (42.8-82.8); PLATELET COUNT 135 10^3/uL (134-434); RDW 27.2 % (11.6-15.6); WHITE BLOOD COUNT 4.5 K/mm3 (4.0-10.0)
[2021-04-19] MEDS: PANTOPRAZOLE 40 MG TABLET PO SCH (09:40)
[2021-04-19 10:03] LABS: ALBUMIN 3.6 g/dl (3.4-5.0); BLOOD UREA NITROGEN 12.8 mg/dL (7-18)
[2021-04-19 10:10] LABS: CREATININE 0.6 mg/dL (0.55-1.3)
[2021-04-19 10:11] LABS: TOT PROT 6.7 g/dl (6.4-8.2)
[2021-04-19 10:13] LABS: BILIRUBIN,TOTAL 0.6 mg/dL (0.2-1)
[2021-04-19 10:23] LABS: CALCIUM 8.6 mg/dL (8.5-10.1)
[2021-04-19 14:11] VITALS: BP 110/71; PULSE 69; TEMP 98.7
== END 2021-04-19 17:56 | disposition home or self-care (01) | DRG 379 ==
LOC: JER 10:54 → INTOOBSV 18:55 → JERBED 18:55 → J6S 22:17 → OBSVTOIN 23:59
PROVIDERS: ADMIT Internal Medicine; ATTEND Nurse Practitioner Acute Care
DX: K62.5 Hemorrhage of anus and rectum (principal); D50.9 Iron deficiency anemia, unspecified; K59.09 Other constipation; K40.90 Unilateral inguinal hernia, without obstruction or gangrene, not specified as recurrent; K57.90 Diverticulosis of intestine, part unspecified, without perforation or abscess without bleeding; Z86.73 Personal history of transient ischemic attack (TIA), and cerebral infarction without residual deficits; J44.9 Chronic obstructive pulmonary disease, unspecified; I10 Essential (primary) hypertension; K76.89 Other specified diseases of liver; N20.0 Calculus of kidney; E86.9 Volume depletion, unspecified; E16.2 Hypoglycemia, unspecified; K64.9 Unspecified hemorrhoids; K80.20 Calculus of gallbladder without cholecystitis without obstruction; E78.5 Hyperlipidemia, unspecified; K43.9 Ventral hernia without obstruction or gangrene; R55 Syncope and collapse
CPT/HCPCS: 36415; 74174-TC; 80053; 80061; 82272; 82550; 82607; 82728; 82746; 82962; 83010; 83550; 83615; 83721; 83735; 84100; 84484; 85025; 85027; 85045; 85610; 85730; 86850; 86900; 86901; 86922; 93005; 93010; 97116-GP; 97161-GP; 99285-25; C9803; G0378; U0003; U0005

== ENCOUNTER 2021-05-15 17:51 | Inpatient (IN) | payer OTHER ==
[2021-05-15 18:10] VITALS: BMI 19.3
[2021-05-15 19:02] LABS: INR 1.21 (0.83-1.09); PROTHROMBIN TIME (PATIENT) 14.8 SEC (9.7-13.0)
[2021-05-15 19:05] LABS: ACTIVATED PTT 27.4 SECONDS (25.2-36.5)
[2021-05-15 19:13] LABS: BASO % 0.6 % (0-2.0); EOS % 0.6 % (0-4.5); HEMATOCRIT 22.5 % (32.4-45.2); HEMOGLOBIN 7.2 GM/dL (10.7-15.3); LYMPH % 21.1 % (8-40); MCH 25.3 pg (25.7-33.7); MCHC 32.1 g/dl (32.0-36.0); MEAN CELL VOLUME 78.8 fl (80-96); MEAN PLT VOLUME 8.9 fl (7.5-11.1); MONO % 7.3 % (3.8-10.2); NEUT % 70.4 % (42.8-82.8); PLATELET COUNT 236 10^3/uL (134-434); RBC 2.85 M/mm3 (3.60-5.2); RDW 22.6 % (11.6-15.6); WHITE BLOOD COUNT 4.5 K/mm3 (4.0-10.0)
[2021-05-15 19:18] LABS: CALCIUM 8.2 mg/dL (8.5-10.1)
[2021-05-15 19:19] LABS: ALBUMIN 3.3 g/dl (3.4-5.0); BLOOD UREA NITROGEN 8.1 mg/dL (7-18)
[2021-05-15 19:22] LABS: CREATININE 0.6 mg/dL (0.55-1.3)
[2021-05-15 19:23] LABS: BILIRUBIN,TOTAL 0.4 mg/dL (0.2-1)
[2021-05-15 19:24] LABS: TOT PROT 6.6 g/dl (6.4-8.2)
[2021-05-15 20:15] LABS: ANISOCYTOSIS 3+
[2021-05-16 03:54] LABS: BASO % 0.4 % (0-2.0); EOS % 0.2 % (0-4.5); HEMATOCRIT 32.2 % (32.4-45.2); HEMOGLOBIN 10.5 GM/dL (10.7-15.3); LYMPH % 23.6 % (8-40); MCH 27.1 pg (25.7-33.7); MCHC 32.7 g/dl (32.0-36.0); MEAN CELL VOLUME 82.9 fl (80-96); MEAN PLT VOLUME 8.7 fl (7.5-11.1); MONO % 9.6 % (3.8-10.2); NEUT % 66.2 % (42.8-82.8); PLATELET COUNT 198 10^3/uL (134-434); RBC 3.88 M/mm3 (3.60-5.2); RDW 19.5 % (11.6-15.6); WHITE BLOOD COUNT 5.2 K/mm3 (4.0-10.0)
[2021-05-16] MEDS ORDERED: SODIUM CHLORIDE 1,000 ML IV SCH (05:30)
[2021-05-16] MEDS ORDERED: PANTOPRAZOLE 40 MG TABLET PO SCH (10:00)
[2021-05-16] MEDS ORDERED: PANTOPRAZOLE 40 MG TABLET ONE (10:12)
[2021-05-16 12:15] LABS: BASO % 1.2 % (0-2.0); EOS % 0.3 % (0-4.5); HEMATOCRIT 30.9 % (32.4-45.2); HEMOGLOBIN 10.4 GM/dL (10.7-15.3); LYMPH % 26.2 % (8-40); MCH 27.2 pg (25.7-33.7); MCHC 33.5 g/dl (32.0-36.0); MEAN CELL VOLUME 81.2 fl (80-96); MEAN PLT VOLUME 8.7 fl (7.5-11.1); MONO % 8.3 % (3.8-10.2); PLATELET COUNT 199 10^3/uL (134-434); RBC 3.81 M/mm3 (3.60-5.2); RDW 19.9 % (11.6-15.6); WHITE BLOOD COUNT 4.6 K/mm3 (4.0-10.0)
[2021-05-16 12:21] LABS: INR 1.2 (0.83-1.09); PROTHROMBIN TIME (PATIENT) 14.4 SEC (9.7-13.0)
[2021-05-16 12:23] LABS: ACTIVATED PTT 31.6 SECONDS (25.2-36.5)
[2021-05-16 12:41] LABS: CALCIUM 8.2 mg/dL (8.5-10.1)
[2021-05-16 12:45] LABS: CREATININE 0.5 mg/dL (0.55-1.3)
[2021-05-16 20:13] VITALS: TEMP 98
[2021-05-16 21:09] VITALS: BP 142/66; PULSE 44
== END 2021-05-16 22:10 | disposition short-term general hospital (02) | DRG 378 ==
LOC: JER 17:51 → JERBED 22:07
PROVIDERS: ADMIT Internal Medicine; ATTEND Internal Medicine
PROC: 30233N1 Transfusion of Nonautologous Red Blood Cells into Peripheral Vein, Percutaneous Approach (ICD-10-PCS; principal; 2021-05-15)
DX: K92.2 Gastrointestinal hemorrhage, unspecified (principal); K57.92 Diverticulitis of intestine, part unspecified, without perforation or abscess without bleeding; E46 Unspecified protein-calorie malnutrition; Z68.1 Body mass index [BMI] 19.9 or less, adult; D62 Acute posthemorrhagic anemia; R64 Cachexia; K43.9 Ventral hernia without obstruction or gangrene; I10 Essential (primary) hypertension; E78.5 Hyperlipidemia, unspecified; K21.9 Gastro-esophageal reflux disease without esophagitis; R00.1 Bradycardia, unspecified
CPT/HCPCS: 36415; 36430; 71045-TC-FY; 80048; 80053; 83605; 85025; 85610; 85730; 86850; 86900; 86901; 86922; 93005; 93010; 99285-25; C9803; P9058; U0003; U0005

== ENCOUNTER 2021-05-27 12:17 | Emergency (ER) | payer OTHER ==
[2021-05-27 12:36] VITALS: BMI 20.3
[2021-05-27] MEDS ORDERED: SODIUM PHOSPHATE/NA BIPHOS 133 ML ENEMA PR ONE (13:57)
[2021-05-27 14:29] LABS: EPI CELLS 3 /uL (0-25.1); HYALINE CASTS 0 /uL (0-3.1); PH,URINE 7.5 (5.0-8.0); URINE APPEARANCE CLEAR; URINE BACTERIA 18 /uL (0-1359); URINE BILIRUBIN NEGATIVE (NEGATIVE); URINE COLOR YELLOW; URINE GLUCOSE (UA) NEGATIVE (NEGATIVE); URINE KETONE NEGATIVE (NEGATIVE); URINE LEUK ESTERASE TRACE (NEGATIVE); URINE NITRITE NEGATIVE (NEGATIVE); URINE PROTEIN NEGATIVE (NEGATIVE); URINE RBC 3 /uL (0-23.9); URINE UROBILINOGEN 0.2 mg/dL (0.2-1.0); URINE WBC 7 /uL (0-25.8)
[2021-05-27] MEDS ORDERED: PANTOPRAZOLE SODIUM 40 MG VIAL IVPUSH ONE (16:24)
[2021-05-27] MEDS ORDERED: PANTOPRAZOLE SODIUM 80 MG in SODIUM CHLORIDE 100 ML IVPB SCH (16:25)
[2021-05-27 16:39] LABS: HEMATOCRIT 29.8 % (32.4-45.2); HEMOGLOBIN 9.7 GM/dL (10.7-15.3); MCHC 32.4 g/dl (32.0-36.0); MEAN CELL VOLUME 83.4 fl (80-96); MEAN PLT VOLUME 10.3 fl (7.5-11.1); PLATELET COUNT 211 10^3/uL (134-434); RBC 3.57 M/mm3 (3.60-5.2); RDW 20.6 % (11.6-15.6); WHITE BLOOD COUNT 4.3 K/mm3 (4.0-10.0)
[2021-05-27] MEDS ORDERED: PANTOPRAZOLE SODIUM 40 MG VIAL ONE (17:07)
[2021-05-27 17:16] LABS: CALCIUM 8.3 mg/dL (8.5-10.1)
[2021-05-27 17:17] LABS: ALBUMIN 3.4 g/dl (3.4-5.0)
[2021-05-27 17:20] LABS: CREATININE 0.7 mg/dL (0.55-1.3)
[2021-05-27 17:21] LABS: BILIRUBIN,TOTAL 0.6 mg/dL (0.2-1)
[2021-05-27 17:22] LABS: TOT PROT 6.8 g/dl (6.4-8.2)
[2021-05-27 19:27] VITALS: BP 172/66; PULSE 75; TEMP 98
[2021-05-27 19:41] LABS: BASO % 0.8 % (0-2.0); HEMOGLOBIN 12.1 GM/dL (10.7-15.3); LYMPH % 5.9 % (8-40); MCH 28.7 pg (25.7-33.7); MCHC 33.6 g/dl (32.0-36.0); MEAN CELL VOLUME 85.4 fl (80-96); MEAN PLT VOLUME 8.8 fl (7.5-11.1); MONO % 5.1 % (3.8-10.2); NEUT % 88.2 % (42.8-82.8); PLATELET COUNT 208 10^3/uL (134-434); RBC 4.21 M/mm3 (3.60-5.2); RDW 18.7 % (11.6-15.6); WHITE BLOOD COUNT 5.6 K/mm3 (4.0-10.0)
== END 2021-05-28 05:18 | disposition short-term general hospital (02) ==
LOC: JER 12:17
PROC: 3E033GC Introduction of Other Therapeutic Substance into Peripheral Vein, Percutaneous Approach (ICD-10-PCS; principal; 2021-05-27)
DX: K92.1 Melena (principal); I95.89 Other hypotension
CPT/HCPCS: 36415; 36430; 36511; 74019-TC-FY; 74174-TC; 80053; 81003; 84484; 85025; 85027; 86850; 86900; 86901; 86922; 87077; 87086; 93005; 93010; 99291; C9803; P9016; P9017; P9034; P9038; P9058; U0003; U0005